=== PATIENT | male | born 1940 | race Caucasian/White ===

== ENCOUNTER 2021-05-07 13:51 | Emergency (ER) | payer MEDICARE, OTHER ==
[~2021-05-07] VITALS: Ht 177.8 cm; Wt 77.1 kg
[2021-05-07 14:25] LABS: BASOPHILS % (AUTO) 0.5 % (0.0-5.0); EOSINOPHILS % (AUTO) 2.1 % (0.0-8.0); HEMATOCRIT 39.6 % (42-54); LYMPHOCYTES % (AUTO) 19.7 % (21.0-51.0); MEAN CORPUSCULAR HEMOGLOBIN 33.8 pg (27.0-33.0); MEAN CORPUSCULAR HGB CONC 34.1 g/dL (32.0-36.0); MEAN CORPUSCULAR VOLUME 99.2 fL (79-99); MONOCYTES % (AUTO) 12.9 % (3.0-13.0); NEUTROPHILS % (AUTO) 64.5 % (40.0-77.0); PLATELET COUNT (AUTO) 220 K/uL (130-400); RED BLOOD CELL COUNT(AUTO) 3.99 MIL/uL (4.50-6.20); RED CELL DISTRIBUTION WIDTH 12.7 % (11.0-15.5); WHITE BLOOD COUNT (AUTO) 6.3 K/uL (4.8-10.8)
[2021-05-07] MEDS ORDERED: 0.9%NACL 1000ML 1,000 ML IV ONE (14:30)
[2021-05-07 14:33] LABS: POTASSIUM 4.9 mmol/L (3.5-5.1)
[2021-05-07] MEDS ORDERED: IOHEXOL-350 75 ML VIAL IV ONE (14:56)
[2021-05-07 17:49] VITALS: BP 132/78
== END 2021-05-07 17:54 | disposition home or self-care (01) ==
LOC: EDH 13:51
DX: H53.8 Other visual disturbances (principal); I10 Essential (primary) hypertension; R42 Dizziness and giddiness; Z95.5 Presence of coronary angioplasty implant and graft; I25.2 Old myocardial infarction
CPT/HCPCS: 36415; 70450; 70496; 70498; 70551; 80048; 82948; 84484; 85025; 93005; 96360; 96361; 99285; J7030; Q9967